=== PATIENT | female | born 2000 | race Caucasian/White ===

== ENCOUNTER 2020-08-22 02:08 | Emergency (ER) | payer OTHER, SELFPAY ==
--- NOTE | 2020-08-22 02:11 | DI.RAD.S_ITS ---
PROCEDURE: XR SHOULDER LT MIN 2V INDICATIONS: fall with shoulder pain, known bone tumor TECHNIQUE: 3 views of the shoulder were acquired. COMPARISON: SNO Outside Film, CR, XR SHOULDER 2+ VIEWS LEFT, 01/20/2020, 12:51. SNO Outside Film, MR, MR SHOULDER LEFT WITHOUT CONTRAST, 02/21/2020, 15:48. FINDINGS: No adequate external rotated view was acquired. Bones: No fractures or dislocations. No suspicious bony lesions. No definite plain film correlate is seen for the humeral neck lesion seen on the outside MRI. Visualized ribs appear intact. Soft tissues: No suspicious soft tissue calcifications. IMPRESSION: Shoulder plain film study within normal limits. Note: No significant discrepancy from the preliminary report. Dictated by: Willian Manning M.D. on 08/22/2020 at 12:42 Approved by: Willian Manning M.D. on 08/22/2020 at 12:45
--- NOTE | 2020-08-22 02:15 | ED.UPPEXIN ---
HPI - Extremity Injury (Upper) General Chief Complaint: Extremity Injury, Upper Stated Complaint: fall/left shoulder injury/pain Time Seen by Provider: 08/22/20 02:11 Source: patient Mode of arrival: Ambulatory Limitations: no limitations History of Present Illness HPI narrative: 20-year-old female nonsmoker presents with the chief complaint of severe left shoulder pain after a fall. She states that she had a few drinks tonight and tripped and fell onto her left shoulder and now has severe pain. She states the pain is worse with motion and improves with rest. She denies any radiation down her arm. She denies any head neck or back pain. 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 complaint: injury to: left Onset (ago): minute(s) Other Extremity Injury: Left: shoulder Other injuries: none Handedness: right Place: other Severity: severe Relieving factors: rest Exacerbating factors: movement of extremity Context: fall and direct blow Associated symptoms: denies other symptoms Treatments prior to arrival: NSAIDS Related Data Allergies Allergy/AdvReac Type Severity Reaction Status Date / Time No Known Drug Allergies Allergy Verified 08/22/20 03:27 Review of Systems Constitutional Constitutional: Denies chills, Denies fatigue, Denies fever(s), Denies frequent falls, Denies lethargy and Denies weakness Eyes Eyes: Denies change in vision, Denies eye discharge, Denies irritation and Denies loss of vision ENT Ears, Nose, Mouth, and Throat: Denies change in voice, Denies dizziness, Denies neck pain, Denies sore throat and Denies throat swelling Cardiovascular Cardiovascular: Denies chest pain, Denies irregular heart rhythm, Denies lightheadedness, Denies palpitations, Denies dyspnea, Denies dyspnea on exertion and Denies orthopnea Respiratory Respiratory: Denies cough, Denies dyspnea, Denies dyspnea on exertion and Denies wheezing Gastrointestinal Gastrointestinal: Denies abdominal pain, Denies change in bowel habits, Denies diarrhea, Denies nausea and Denies vomiting Musculoskeletal Musculoskeletal: Reports arthralgias, Reports limited range of motion, Denies neck pain and Denies numbness Integumentary/Breasts Skin/Breast: Denies pruritus, Denies erythema, Denies rash and Denies wounds Neurologic Neurologic: Denies behavioral changes, Denies confusion, Denies dizziness, Denies frequent falls, Denies loss of vision, Denies numbness and Denies weakness Psychiatric Psychiatric: Denies anxiety, Denies behavioral changes, Denies confusion, Denies depression, Denies homicidal ideation and Denies suicidal ideation Endocrine Endocrine: Denies fatigue, Denies flushing and Denies palpitations Hematologic/Lymphatic Hematologic/Lymphatic: Denies easy bruising Allergic/Immunologic Allergic/Immunologic: Denies urticaria, Denies throat swelling and Denies wheezing Patient History Social History Smoking Status: Never smoker Smoking Status: Never smoker alcohol intake frequency: 0-2 drinks per day Substance Use Type: does not use Exam Narrative Exam Narrative: GEN: AOx3 and in mild distress EYES: Pupils are equal, round, and reactive to light and accommodation. Extraoccular muscles are intact bilaterally. There is no subconjunctival hemorrhage or exudate. CHEST: Lungs are clear to auscultation bilaterally and free of wheezes, rales, or rhonchi. Heart rate is regular rhythm, there are no murmurs, clicks, rubs, or gallops. There is no chest wall tenderness. ABD: Abdomen is soft and nontender. There is no guarding or rebound. Bowel sounds are normal in all 4 quadrants. There is no mass or organomegaly. EXT: Left shoulder with Decreased range of motion secondary to pain, closed, isolated and neurovascularly intact. SKIN: Warm, pink, and dry. No erythema or rash Initial Vital Signs Initial Vital Signs: Vital Signs Temperature 97.5 F L 08/22/20 02:16 Pulse Rate 80 08/22/20 02:16 Respiratory Rate 18 08/22/20 02:16 Blood Pressure 129/86 08/22/20 02:16 Pulse Oximetry 100 08/22/20 02:16 Procedures Orthopedic Splinting/Casting Injury #1: Side: left Upper Extremity Injury Location: shoulder Upper Extremity Immobilizer: sling/shoulder immobilizer Post splinting neuro exam: intact Post splinting vascular exam: intact Placed by: Nursing Course Orders Ordered: ED Orders 08/22/20 02:11 XR shoulder LT min 2V Stat Discontinued Medications Hydrocodone Bitart/Acetaminophen (Hydrocodone/Acet 5/325 Prepack) 1 bottle MISC SEEINSTR ONE Stop: 08/22/20 03:25 Last Admin: 08/22/20 03:31 Dose: 1 bottle Documented by: TRACY Vital Signs Vital signs: Vital Signs - 8 hr 08/22/20 02:16 08/22/20 03:46 Temperature 97.5 F L Pulse Rate 80 76 Respiratory Rate 18 18 Blood Pressure 129/86 115/70 Pulse Oximetry 100 99 MDM - Extremity Injury (Upper) Imaging Data Extremity x-ray #1: My Impression: No fracture or dislocation MDM Narrative Medical decision making narrative: Patient with pain but full range of motion of left shoulder no obvious deformity. X-ray is unremarkable. Sling provided which provides relief. Patient has follow-up secured with her orthopedic group already later in the week. Questions answered to her apparent satisfaction, return precautions given Discharge Plan Departure Patient Disposition: Home Clinical Impression: Contusion of left shoulder Qualifiers: Encounter type: initial encounter Qualified Code(s): S40.012A - Contusion of left shoulder, initial encounter Instructions: DI for Shoulder Pain Activity Restrictions/Additional Instructions: *You have been diagnosed with [left shoulder pain, your physical exam and x-rays are very reassuring, no evidence of fracture or dislocation] *What to do: *Please continue to take your regular medications as directed. [ ] New medication prescriptions sent to your pharmacy: [ ] [ ] New medication written as a paper prescription [ ] No new medications given *Please follow up with your primary care provider in 2-3 days, call for an appointment. Let them know you were seen in the Emergency Department and that we ask that you be seen in follow up. We will electronically transmit a record of today's note if your PCP is in our system *If you do not have a primary care provider please contact the [facility] Resource line at [phone]. They will ask some questions about your medical history and help get you set up with a doctor in the community. *Return to Emergency Department if you should have any new, worsening or concerning symptoms, such as [fever greater than 101 F, shaking chills, worsening pain, persistent vomiting or other bothersome symptoms]
[2020-08-22 02:16] VITALS: BP 129/86; PULSE 80; RESP 18; TEMP 36.4; O2SAT 100; BMI 22.4
[2020-08-22] MEDS: HYDROCODONE/ACET 5/325 PREPACK 1 BOTTLE MISC (03:31)
[2020-08-22 03:46] VITALS: BP 115/70; PULSE 76; RESP 18; O2SAT 99
== END 2020-08-22 04:06 | disposition home or self-care (01) ==
PROVIDERS: Emergency Provider Emergency Medicine
DX: S40.012A Contusion of left shoulder, initial encounter (principal); W19.XXXA Unspecified fall, initial encounter
CPT/HCPCS: 73030; 99283; 99284

== ENCOUNTER 2025-03-05 12:26 | Emergency (ER) | payer OTHER, SELFPAY ==
[2025-03-05] VITALS (8 sets, daily range): BP systolic 105–122; BP diastolic 59–76; PULSE 79–102; RESP 17–27; TEMP 37.3; O2SAT 97–99; BMI 23.6
--- NOTE | 2025-03-05 12:53 | EKG_ITS ---
[address] [address] Test Date: 2025-03-05 Pat Name: Kira Coombs Department: [facility] Room: Gender: Female Transaction Coordinator: : 2000 Requested By: Order Number: [id number] Reading MD: Laurent Momin Measurements Intervals [place] Rate: 83 P: 53 CA: 150 QRS: 63 QRSD: 98 T: 8 QT: 376 QTc: 441 Interpretive Statements Normal sinus rhythm Incomplete right bundle branch block Electronically Signed On 03-08-2025 12:54:50 PST by Laurent Momin
--- NOTE | 2025-03-05 12:54 | DI.RAD.S_ITS ---
PROCEDURE: XR CHEST 2V INDICATIONS: dry cough TECHNIQUE: 2 views of the chest were acquired. COMPARISON: None. FINDINGS: Surgical changes and devices: None. Lungs and pleura: Significant, poorly defined left perihilar infiltrate can be seen. The right lung appears clear. No pneumothorax or pleural effusions are seen. Mediastinum: Mediastinal contours are normal. Heart size is normal. Bones and chest wall: No suspicious bony abnormalities. Soft tissues appear unremarkable. IMPRESSION: Significant, poorly defined left perihilar infiltrate is seen. Dictated by: Willian Manning M.D. on 03/05/2025 at 12:21 Approved by: Willian Manning M.D. on 03/05/2025 at 12:22
[2025-03-05 14:02] LABS: Add Manual Diff / Slide Review NO; Hematocrit 36.6 % (36-46); Hemoglobin 12.4 g/dL (12.0-16.0); Lymphocytes Absolute Auto 1200 /uL (1100-4500); Mean Corpuscular HGB Conc 34.0 % (30-36); Mean Corpuscular Hemoglobin 30.7 PG (26-34); Mean Corpuscular Volume 90.5 fL (80-100); Platelet Count 308 X10^3/uL (150-400)
[2025-03-05 14:09] LABS: INR 1.3 (0.9-1.3); Prothrombin Time 14.3 SECONDS (9.4-12.5)
[2025-03-05 14:11] LABS: Influenza A - CEPHEID Flu A NEGATIVE (NEGATIVE); Influenza B - CEPHEID Flu B NEGATIVE (NEGATIVE)
[2025-03-05 14:12] LABS: PTT Partial Thromboplastin Tim 30 SECONDS (25.1-36.5)
[2025-03-05 14:12] LABS: COVID-19 CEPHEID 4-PLEX PCR Negative (Negative)
[2025-03-05] MEDS: SODIUM CHLORIDE 0.9% 1,000 ML 1000 ML IV (14:13)
[2025-03-05 14:14] LABS: Culture Indicated Urine Specimen Cultured
[2025-03-05 14:15] LABS: Alanine Aminotransferase 25 IU/L (<35); Albumin 4.3 g/dL (3.5-5.0); Albumin Globulin Ratio 1.4 (1.0-2.8); Alkaline Phosphatase 59 U/L (38-126); Blood Urea Nitrogen 12 mg/dL (7-17); Calcium 8.7 mg/dL (8.4-10.2); Carbon Dioxide 26 mmol/L (22-32); Chloride 102 mmol/L (98-107); Creatine Kinase 87 U/L (30-135); Estimated Glomerular Filt Rate > 60 mL/min (>60); Globulin 3.1 g/dL (1.7-4.1); Glucose 100 mg/dL (70-99); HEMOLYSIS < 15 (0-50); Lipase 53 U/L (23-300); Magnesium 1.8 mg/dL (1.6-2.3); Potassium 3.3 mmol/L (3.4-5.1); Sodium 136 mmol/L (137-145); Total Protein 7.4 g/dL (6.3-8.2)
[2025-03-05] MEDS: KETOROLAC 30 MG/ML VIAL 15 MG IV (14:15)
[2025-03-05 14:27] LABS: NT-proBNP (BNP-Adult 18+) 58 pg/mL (<125); Troponin I < 0.012 ng/mL (0.01-0.034)
--- NOTE | 2025-03-05 14:54 | ED.URI ---
HPI - URI/Sore Throat General Chief Complaint: Upper Respiratory Symptoms Stated Complaint: Chest px/fever/cough x 1 week Time Seen by Provider: 03/05/25 12:38 Source: patient Mode of arrival: Family Vehicle History of Present Illness HPI Narrative: Ms. Coombs is a very pleasant 24-year-old female with no reported past medical history who presents to the emergency department with her mother for chest pain, shortness breath, fever, cough x1 week. Patient states her symptoms started about 1 week ago, she does work around multiple sick people. She does not have asthma, smoke cigarettes or any other lung problems. She was started on amoxicillin clavulanic acid about 3 days ago but she has continued to have symptoms. She describes chest pain as a tightness predominantly on the right side. No vomiting or diarrhea. Benzonatate has not helped with her cough. No lower leg swelling or calf tenderness, no hormone use. Related Data Previous Rx's ?Medication ?Instructions ?Recorded doxycycline hyclate 100 mg capsule 100 mg PO BID 5 days #10 caps 03/05/25 Allergies Allergy/AdvReac Type Severity Reaction Status Date / Time No Known Drug Allergies Allergy Verified 03/05/25 12:46 Review of Systems Review of Systems ROS Unobtainable: All systems reviewed & are unremarkable except as noted in HPI and below Patient History Social History Smoking Status: Never smoker Smoking Status: Never smoker alcohol intake frequency: 0-2 drinks per day Exam Narrative Exam Narrative: GENERAL: 24 year old patient appears stated age. Well-developed patient, in no acute distress. HEAD: Atraumatic. Normocephalic. EYES: PERRL. Extraocular motions intact. No scleral icterus. No injection or drainage. ENT: Nose without bleeding, purulent drainage. Throat without erythema, tonsillar hypertrophy or exudate. Airway patent. NECK: Trachea midline. Cervical ROM intact. CARDIOVASCULAR: Regular rate and rhythm. RESPIRATORY: ?Nonlabored respirations. ?Speaking in clear, full sentences. Subtle bilateral coarse inspiratory breath sounds, there is no wheezing throughout. GASTROINTESTINAL: Abdomen soft, non-tender, nondistended. EXTREMITIES: No edema or joint tenderness. BACK: Nontender without deformity or crepitance. No flank tenderness. NEURO: AOx3. ?Clear speech. ?Moves all 4 extremities appropriately. SKIN: No rash or erythema of visible areas Initial Vital Signs Initial Vital Signs: Vital Signs Temperature 99.2 F 03/05/25 12:48 Pulse Rate 102 H 03/05/25 12:48 Respiratory Rate 18 03/05/25 12:48 Blood Pressure 122/76 03/05/25 12:48 Pulse Oximetry 99 03/05/25 12:48 Oxygen Delivery Method Room Air 03/05/25 12:48 Scores HEART Score Heart Score history: Slightly Suspicious Heart Score EKG: Normal Heart Score Age: < 45 years old Heart Score risk factors: No known risk factors Heart Score troponin: < or = to normal limit Heart Score Total: 0 PERC Score Age greater than or equal to 50 years: No Heart rate greater than or equal to 100 bpm: No Room Air O2 Sat less than 95%: No Unilateral leg swelling: No Recent trauma or surgery: No Hemoptysis: No Prior PE or DVT: No Hormone Use: No Total PERC Score: 0 Course Orders Ordered: ED Orders 03/05/25 12:53 EKG-12 Lead Stat 03/05/25 12:54 CXR [XR chest 2V] Stat 03/05/25 12:57 Covid-19 + FLU A/B + RSV - PCR Stat 03/05/25 13:55 Complete Blood Count AUTO DIFF Stat Comprehensive Metabolic Panel Stat Lipase Stat Magnesium Stat NT-proBNP (BNP-Adult 18+) Stat PTT Partial Thromboplastin David Stat Test Urine Stat Prothrombin Time INR Stat Troponin & CK Cardiac Panel Stat Urine Culture Stat Urine Microscopic Stat Discontinued Medications Doxycycline Hyclate (Doxycycline Hyclate 100 Mg Tablet) 100 mg PO NOW ONE Stop: 03/05/25 15:50 Last Admin: 03/05/25 15:54 Dose: 100 mg Documented By: PRINCESS Sodium Chloride (Normal Saline 0.9%) 1,000 mls @ 1,000 mls/hr IV BOLUS ONE Stop: 03/05/25 13:54 Last Infusion: 03/05/25 14:59 Dose: Infused Documented By: Admin: 03/05/25 14:13 Dose: 1,000 mls/hr Documented By: PRINCESS Ketorolac Tromethamine (Ketorolac 30 Mg/Ml Vial) 15 mg IV NOW ONE Stop: 03/05/25 12:56 Last Admin: 03/05/25 14:15 Dose: 15 mg Documented By: [facility] Vital Signs Vital signs: Vital Signs - 8 hr 03/05/25 12:48 03/05/25 13:54 03/05/25 13:55 Temperature 99.2 F Pulse Rate 102 H 90 91 H Respiratory Rate 18 17 22 Blood Pressure 122/76 Pulse Oximetry 99 99 Oxygen Delivery Method Room Air 03/05/25 13:55 03/05/25 14:00 03/05/25 14:00 Temperature Pulse Rate 93 H Respiratory Rate 22 Blood Pressure 115/60 113/63 Pulse Oximetry 99 Oxygen Delivery Method Room Air 03/05/25 14:30 03/05/25 14:30 03/05/25 15:00 Temperature Pulse Rate 82 87 Respiratory Rate 27 H 25 H Blood Pressure 107/59 L Pulse Oximetry 97 97 Oxygen Delivery Method Room Air 03/05/25 15:00 03/05/25 15:30 03/05/25 15:30 Temperature Pulse Rate 81 Respiratory Rate 23 Blood Pressure 110/59 L 110/67 Pulse Oximetry 98 Oxygen Delivery Method 03/05/25 16:00 03/05/25 16:00 Temperature Pulse Rate 79 Respiratory Rate 22 Blood Pressure 105/65 Pulse Oximetry 97 Oxygen Delivery Method MDM - URI/Sore Throat Medical Records Attestation: I reviewed the patient's medical records. Lab Data 03/05/25 13:55 03/05/25 13:55 Labs: Lab Results 03/05/25 03/05/25 Range/Units 12:57 13:55 WBC 9.9 (4.5-11.0) X10^3/uL RBC 4.05 (4.0-5.2) X10^6/uL Hgb 12.4 (12.0-16.0) g/dL Hct 36.6 (36-46) % MCV 90.5 (80-100) fL MCH 30.7 (26-34) PG MCHC 34.0 (30-36) % RDW 12.9 (11.6-14.8) % Plt Count 308 (150-400) X10^3/uL Neut % (Auto) 73.0 (50-75) % Lymph % (Auto) 11.9 L (25-40) % [place] % (Auto) 13.6 (3-14) % Eos % (Auto) 1.2 L (2-4) % Baso % (Auto) 0.3 (0-2) % Neut # (Auto) 7200 H (5746-4789) /uL Lymph # (Auto) 1200 (4173-2088) /uL Baxter # (Auto) 1300 H (0-900) /uL Eos # (Auto) 100 (0-450) /uL Baso # (Auto) 0 (0-100) /uL PT 14.3 H (9.4-12.5) SECONDS INR 1.3 (0.9-1.3) APTT 30 (25.1-36.5) SECONDS Sodium 136 L (137-145) mmol/L Potassium 3.3 L (3.4-5.1) mmol/L Chloride 102 (98-107) mmol/L Carbon Dioxide 26 (22-32) mmol/L BUN 12 (7-17) mg/dL Creatinine 0.66 (0.52-1.04) mg/dL Estimated GFR > 60 (>60) mL/min BUN/Creatinine Ratio 18.2 (6-22) Glucose 100 H (70-99) mg/dL Calcium 8.7 (8.4-10.2) mg/dL Magnesium 1.8 (1.6-2.3) mg/dL Total Bilirubin 0.3 (0.2-1.3) mg/dL AST 30 (14-36) IU/L ALT 25 (<35) IU/L Alkaline Phosphatase 59 (38-126) U/L Total Creatine Kinase 87 (30-135) U/L Troponin I < 0.012 (0.01-0.034) ng/mL NT-Pro-B Natriuret Pep 58 (<125) pg/mL Total Protein 7.4 (6.3-8.2) g/dL Albumin 4.3 (3.5-5.0) g/dL Globulin 3.1 (1.7-4.1) g/dL Albumin/Globulin Ratio 1.4 (1.0-2.8) Lipase 53 (23-300) U/L Urine RBC None seen (0-5/HPF) Urine WBC 1-5/hpf (0-5/HPF) Ur Squamous Epith Cells 5-10 /hpf H (0-5/HPF) Urine Bacteria None seen (None) Ur Culture Indicated? Specimen cultured Vol Urine Centrifuged 10ml (spun) Urine Test Negative (Negative) SARS-CoV-2 (PCR) Negative (Negative) Influenza A (RT-PCR) Flu a negative (NEGATIVE) Influenza B (RT-PCR) Flu b negative (NEGATIVE) RSV (PCR) Negative (Negative) Urine Dip Bedside Urine Glucose Negative Bedside Urine Bilirubin - Negative Bedside Urine Ketone - Negative Urine Specific [place] 1.015 Bedside Urine Occult Blood - Negative Bedside Urine pH 6.5 Bedside Urine Protein +/- 15 Bedside Urine Urobilinogen - Negative Bedside Urine Nitrite - Negative Bedside Urine Leukocytes +/- 15 Esterase Imaging Data Chest x-ray: Radiologist's Impression: PROCEDURE: XR CHEST 2V INDICATIONS: dry cough TECHNIQUE: 2 views of the chest were acquired. COMPARISON: None. FINDINGS: Surgical changes and devices: None. Lungs and pleura: Significant, poorly defined left perihilar infiltrate can be seen. The right lung appears clear. No pneumothorax or pleural effusions are seen. Mediastinum: Mediastinal contours are normal. Heart size is normal. Bones and chest wall: No suspicious bony abnormalities. Soft tissues appear unremarkable. IMPRESSION: Significant, poorly defined left perihilar infiltrate is seen. Dictated by: Willian Manning M.D. on 03/05/2025 at 12:21 Approved by: Willian Manning M.D. on 03/05/2025 at 12:22 ECG Data Interpretation: ECG reveals normal sinus rhythm with a rate of 83 beats per minute, QTC of 441, no priors for comparison. MDM Narrative Medical decision making narrative: 24-year-old female with no reported past medical history who presents to the emergency department with her mother for chest pain, shortness breath, fever, cough x1 week. Differential diagnosis includes but isn't limited to pneumonia, costochondritis, bronchitis, myocarditis, PE, etc. On exam the patient is in no acute distress, nontoxic appearing, vital signs appropriate. She is afebrile. She is having persistent cough resulting in chest pain for the last week despite being on antibiotics for about 3 days. She has some coarse inspiratory breath sounds but no wheezing. No history of lung disease, she does not smoke. We will obtain cardiac workup including two-view chest x-ray and treat with IV fluids and ketorolac. PERC negative. Chest x-ray reveals a significant perihilar defined left perihilar infiltrate. Labs reveal normal WBC count 9.9, neutrophils slightly elevated 7200. Sodium slightly decreased 136, potassium 3.3, BUN 12 creatinine 0.66. Glucose 100. Troponin undetectable. BNP negative. LFTs normal. Lipase normal 53. Urinalysis with some contamination. Discussed case with the attending ED physician. Overall patient's history physical exam and workup today is consistent with pneumonia. She has been on Augmentin for 3 days we will add on doxycycline b.i.d.. Encourage rest, hydration, increase dietary potassium, prompt follow up with the PCP and strict ER return precautions. Reviewed signs and symptoms return to the emergency department for with the patient and her mom, she verbalized understanding of all information is agreeable with the plan, 1st dose of antibiotics given in the ED, she is stable for discharge home. Discharge Plan Departure Patient Disposition: Home Clinical Impression: Pneumonia Qualifiers: Pneumonia type: due to unspecified organism Laterality: left Lung location: unspecified part of lung Qualified Code(s): J18.9 - Pneumonia, unspecified organism Instructions: DI for Pneumonia -- Adult Activity Restrictions/Additional Instructions: Dear Ms. Coombs, Thank you for coming to the emergency department. Today you were evaluated and diagnosed with pneumonia of the left long. I would like you to complete the full course of previously prescribed amoxicillin-clavulanic acid but also start taking doxycycline. As discussed, do not take this medication prior to lying flat. It is helpful that eat something before taking these medications. Please rest, hydrate, use ibuprofen and or Tylenol if needed for pain or fevers, increase hydration, and use honey to help with cough. Please return to the emergency department if you develop any new or worsening symptoms, increased pain, difficulty breathing or any other concerns. Please follow up with your primary care doctor within the next 2-3 days for ER follow-up. (If you do not have a PCP you can call [phone]. ?to schedule an appointment with an [facility] Primary Care Provider) IF YOU DEVELOP ANY NEW OR WORSENING SYMPTOMS, RETURN TO THE ER! Please read the attached instructions, they highlight more specific treatments and interventions for you at home. Thank you for letting me participate in your care, Linda Starkey PA-C Prescriptions: New doxycycline hyclate 100 mg capsule 100 mg PO BID 5 Days Qty: 10 0RF Referrals: Annmarie Crespo MD [Primary Care Provider, Medical] Stand Alone Forms: Patient Portal/API, Work Release Note
[2025-03-05] MEDS: DOXYCYCLINE HYCLATE 100 MG TABLET PO (15:54)
== END 2025-03-05 16:14 | disposition home or self-care (01) ==
PROVIDERS: Emergency Provider Physician Assistant; PCP Family Medicine
DX: J18.9 Pneumonia, unspecified organism (principal); R07.9 Chest pain, unspecified
CPT/HCPCS: 36415; 71046; 80053; 81003; 81015; 81025; 82550; 83690; 83735; 83880; 84484; 85025; 85610; 85730; 87086; 87637; 93005; 96374; 99284; J1885; J7030

== ENCOUNTER 2025-03-22 12:59 | Emergency (ER) | payer OTHER, SELFPAY ==
[2025-03-22 13:07] VITALS: BP 118/72; PULSE 84; RESP 20; TEMP 36.6; O2SAT 100; BMI 23.6
--- NOTE | 2025-03-22 13:18 | ED_ITS ---
HPI - SOB/Dyspnea <Linda Starkey PA-C - Last Filed: 03/22/25 18:14> General Chief Complaint: Shortness of Breath/Dyspnea Stated Complaint: cough, chest px since yesterday Time Seen by Provider: 03/22/25 13:04 Source: patient Mode of arrival: Ambulatory Limitations: no limitations History of Present Illness HPI Narrative: Ms. Coombs is a pleasant 24-year-old female with a reported past medical history of POTS, recent treatment for pneumonia 03/05/2025, currently on cefdinir for right ear infection x 5 days who presents to the emergency department for cough, chest pain x 7 days. Patient states that after being treated with doxycycline for left lower lobe pneumonia earlier this month she was feeling better however her cough never went away. On Monday she started having chest pain worse with coughing and her cough increased. On Monday she was evaluated for right ear pain and started on cefdinir for acute otitis media. She continues to have worsening cough and worsening bilateral chest pain with coughing which she describes stabbing, 10. Pain is exacerbated by coughing movement and deep breathing and does not improve with Tylenol. She denies hormone use, prior VTE, lower extremity swelling or pain. No abdominal pain, nausea, vomiting, diarrhea, constipation, fevers, chills, dysuria. She does not smoke. She is noticing that she is wheezing. Related Data Previous Rx's ?Medication ?Instructions ?Recorded albuterol sulfate 90 mcg/actuation 2 puff inhalation Q 4-6H PRN 03/22/25 aerosol inhaler shortness of breath or wheez ing #6.7 grams azithromycin 250 mg tablet See Rx Instructions PO .COM PLEX #6 03/22/25 tabs prednisone 20 mg tablet 40 mg (2 x 20 mg) PO DAILY 5 days 03/22/25 #10 tabs Allergies Allergy/AdvReac Type Severity Reaction Status Date / Time No Known Drug Allergies Allergy Verified 03/22/25 13:10 Review of Systems <MARILOU Doll Last Filed: 03/22/25 18:14> Review of Systems ROS Unobtainable: All systems reviewed & are unremarkable except as noted in HPI and below Patient History <MARILOU Doll Last Filed: 03/22/25 18:14> alcohol intake frequency: 0-2 drinks per day Exam <Linda Starkey PA-C - Last Filed: 03/22/25 18:14> Narrative Exam Narrative: GENERAL: 24 year old patient appears stated age. Well-developed patient, in no acute distress. HEAD: Atraumatic. Normocephalic. EYES: No scleral icterus. No injection or drainage. ENT: Right ear canal clear, slight erythema of TM. Left ear canal clear with pearly aquino TM. Nose without bleeding, purulent drainage. Uvula midline. Airway patent. NECK: Trachea midline. Cervical ROM intact. CARDIOVASCULAR: Regular rate and rhythm. RESPIRATORY: ?Nonlabored respirations. ?Speaking in clear, full sentences. ?Patient has very faint coarse inspiratory crackles and left lower lobe and expiratory wheeze. She also has expiratory wheeze in right lower lobe. GASTROINTESTINAL: Abdomen soft, non-tender, nondistended. EXTREMITIES: No LE edema. NEURO: AOx3. ?Clear speech. ?Moves all 4 extremities appropriately. SKIN: No rash or erythema of visible areas Initial Vital Signs Initial Vital Signs: Vital Signs Temperature 97.8 F 03/22/25 13:07 Pulse Rate 84 03/22/25 13:07 Respiratory Rate 20 03/22/25 13:07 Blood Pressure 118/72 03/22/25 13:07 Pulse Oximetry 100 03/22/25 13:07 Oxygen Delivery Method Room Air 03/22/25 13:07 <Irene Cosby MD - Last Filed: 03/24/25 00:57> Initial Vital Signs Initial Vital Signs: Vital Signs Temperature 97.8 F 03/22/25 13:07 Pulse Rate 84 03/22/25 13:07 Respiratory Rate 20 03/22/25 13:07 Blood Pressure 118/72 03/22/25 13:07 Pulse Oximetry 100 03/22/25 13:07 Oxygen Delivery Method Room Air 03/22/25 13:07 Scores <Linda Starkey PA-C - Last Filed: 03/22/25 18:14> PERC Score Age greater than or equal to 50 years: No Heart rate greater than or equal to 100 bpm: No Room Air O2 Sat less than 95%: No Unilateral leg swelling: No Recent trauma or surgery: No Hemoptysis: No Prior PE or DVT: No Hormone Use: No Total PERC Score: 0 <Irene Cosby MD - Last Filed: 03/24/25 00:57> PERC Score Total PERC Score: 0 Course <Linda Starkey PA-C - Last Filed: 03/22/25 18:14> Orders Ordered: Discontinued Medications Albuterol/Ipratropium (Albuterol/Ipratropium 3 Ml Ampul) 3 ml INH NOW ONE Stop: 03/22/25 13:16 Last Admin: 03/22/25 13:33 Dose: 3 ml Documented By: TIMBO Sodium Chloride (Normal Saline 0.9%) 1,000 mls @ 1,000 mls/hr IV BOLUS ONE Stop: 03/22/25 14:14 Last Infusion: 03/22/25 14:49 Dose: Infused Documented By: Admin: 03/22/25 13:52 Dose: 1,000 mls/hr Documented By: PRINCESS Ketorolac Tromethamine (Ketorolac 30 Mg/Ml Vial) 15 mg IV NOW ONE Stop: 03/22/25 13:16 Last Admin: 03/22/25 13:41 Dose: 15 mg Documented By: PRINCESS Prednisone (Prednisone 20 Mg Tablet) 40 mg PO NOW ONE Stop: 03/22/25 13:16 Last Admin: 03/22/25 13:40 Dose: 40 mg Documented By: PRINCESS Vital Signs Vital signs: Vital Signs - 8 hr 03/22/25 13:07 03/22/25 13:33 03/22/25 14:50 Temperature 97.8 F Pulse Rate 84 78 72 Respiratory Rate 20 18 24 Blood Pressure 118/72 95/51 L Pulse Oximetry 100 99 99 Oxygen Delivery Method Room Air Room Air Room Air 03/22/25 15:11 Temperature Pulse Rate 74 Respiratory Rate 24 Blood Pressure 108/58 L Pulse Oximetry 100 Oxygen Delivery Method Room Air <Irene Cosby MD - Last Filed: 03/24/25 00:57> Orders Ordered: Discontinued Medications Albuterol/Ipratropium (Albuterol/Ipratropium 3 Ml Ampul) 3 ml INH NOW ONE Stop: 03/22/25 13:16 Last Admin: 03/22/25 13:33 Dose: 3 ml Documented By: TIMBO Sodium Chloride (Normal Saline 0.9%) 1,000 mls @ 1,000 mls/hr IV BOLUS ONE Stop: 03/22/25 14:14 Last Infusion: 03/22/25 14:49 Dose: Infused Documented By: Admin: 03/22/25 13:52 Dose: 1,000 mls/hr Documented By: PRINCESS Ketorolac Tromethamine (Ketorolac 30 Mg/Ml Vial) 15 mg IV NOW ONE Stop: 03/22/25 13:16 Last Admin: 03/22/25 13:41 Dose: 15 mg Documented By: PRINCESS Prednisone (Prednisone 20 Mg Tablet) 40 mg PO NOW ONE Stop: 03/22/25 13:16 Last Admin: 03/22/25 13:40 Dose: 40 mg Documented By: PRINCESS Vital Signs Vital signs: Vital Signs - 8 hr 03/22/25 13:07 03/22/25 13:33 03/22/25 14:50 Temperature 97.8 F Pulse Rate 84 78 72 Respiratory Rate 20 18 24 Blood Pressure 118/72 95/51 L Pulse Oximetry 100 99 99 Oxygen Delivery Method Room Air Room Air Room Air 03/22/25 15:11 Temperature Pulse Rate 74 Respiratory Rate 24 Blood Pressure 108/58 L Pulse Oximetry 100 Oxygen Delivery Method Room Air MDM - SOB/Dyspnea <Linda Starkey PA-C - Last Filed: 03/22/25 18:14> Medical Records Attestation: I reviewed the patient's medical records. Lab Data 03/22/25 13:30 03/22/25 13:30 Labs: Lab Results 03/22/25 Range/Units 13:30 WBC 6.6 (4.5-11.0) X10^3/uL RBC 4.22 (4.0-5.2) X10^6/uL Hgb 12.7 (12.0-16.0) g/dL Hct 37.3 (36-46) % MCV 88.6 (80-100) fL MCH 30.0 (26-34) PG MCHC 33.9 (30-36) % RDW 13.1 (11.6-14.8) % Plt Count 445 H (150-400) X10^3/uL Neut % (Auto) 49.7 L (50-75) % Lymph % (Auto) 32.8 (25-40) % Summers % (Auto) 11.0 (3-14) % Eos % (Auto) 6.1 H (2-4) % Baso % (Auto) 0.4 (0-2) % Neut # (Auto) 3300 (5683-2214) /uL Lymph # (Auto) 2200 (2973-5548) /uL Summers # (Auto) 700 (0-900) /uL Eos # (Auto) 400 (0-450) /uL Baso # (Auto) 0 (0-100) /uL Sodium 140 (137-145) mmol/L Potassium 4.0 (3.4-5.1) mmol/L Chloride 107 (98-107) mmol/L Carbon Dioxide 22 (22-32) mmol/L BUN 16 (7-17) mg/dL Creatinine 0.74 (0.52-1.04) mg/dL Estimated GFR > 60 (>60) mL/min BUN/Creatinine Ratio 21.6 (6-22) Glucose 100 H (70-99) mg/dL Calcium 9.3 (8.4-10.2) mg/dL Total Bilirubin 0.6 (0.2-1.3) mg/dL AST 52 H (14-36) IU/L ALT 28 (<35) IU/L Alkaline Phosphatase 63 (38-126) U/L Total Protein 7.7 (6.3-8.2) g/dL Albumin 4.7 (3.5-5.0) g/dL Globulin 3.0 (1.7-4.1) g/dL Albumin/Globulin Ratio 1.6 (1.0-2.8) SARS-CoV-2 (PCR) Negative (Negative) Influenza A (RT-PCR) Flu a negative (NEGATIVE) Influenza B (RT-PCR) Flu b negative (NEGATIVE) RSV (PCR) Negative (Negative) Imaging Data Chest x-ray: Radiologist's Impression: PROCEDURE: XR CHEST 2V INDICATIONS: SOB, wheezing, cough; CP; concern PNA TECHNIQUE: 2 views of the chest were acquired. COMPARISON: [facility], , XR CHEST 2V, 03/05/2025, 12:59. FINDINGS: Surgical changes and devices: None. Lungs and pleura: Lungs are clear. No pleural effusions or pneumothorax. Mediastinum: Mediastinal contours are normal. Heart size is normal. Bones and chest wall: No suspicious bony abnormalities. Soft tissues appear unremarkable. IMPRESSION: No acute cardiopulmonary pathology. Dictated by: Juventino Akers M.D. on 03/22/2025 at 14:16 Approved by: Juventino Akers M.D. on 03/22/2025 at 14:16 [facility] Narrative Medical decision making narrative: 24-year-old female with a reported past medical history of POTS, recent treatment for pneumonia 03/05/2025, currently on cefdinir for right ear infection x 5 days who presents to the emergency department for cough, chest pain x 7 days. Differential diagnosis includes but is not limited to pneumonia, bronchitis, reactive airway disease, pleurisy, pneumonia, viral syndrome, etc. On exam the patient is in no acute distress, nontoxic-appearing, all vital signs within normal limits. She does have what appears to be healing AOM in right ear currently on cefdinir. Her lung sounds do reveal expiratory wheezing and some faint crackles in the left lower lobe. No history of asthma. We will treat with DuoNeb, prednisone, IV fluids, Toradol and obtain CBC CMP chest x-ray EKG. Patient is having coughing, chest pain with coughing, with auscultated abnormal breath sounds. She is healthy 24-year-old no history of CAD or other heart disease, I do not believe that this is ACS therefore troponin has not been ordered at this time. EKG reveals normal sinus rhythm with a ventricular rate of 65 beats per minute, QTC of [address] segment elevation or depression. Chest x-ray reveals no acute cardiopulmonary pathology. Labs reveal normal WBC count 6.6, hemoglobin 12.7 hematocrit 37.3. Platelets slightly elevated 445. Sodium 140, potassium 4.0, BUN 16 creatinine 0.74. Glucose 100. Slight elevation AST 52. Viral swab negative. On repeat evaluation of patient, her lung sounds have improved she has very faint expiratory wheezing in bilateral lower lobes. Discussed with the patient that I would like her to continue on steroids and using an albuterol inhaler for the wheezing. We discussed that this could be a possible atypical pneumonia developing or it may simply be viral. We decided that she will continue her cefdinir and start the steroid and the inhaler but if she does not have improvement she was sent a script of azithromycin. Discussed strict ER return precautions and supportive care. Discussed PCP follow up. She verbalized understanding of all information agreeable with the plan. She is stable for discharge home. <Irene Cosby MD - Last Filed: 03/24/25 00:57> Lab Data Labs: Lab Results 03/22/25 Range/Units 13:30 WBC 6.6 (4.5-11.0) X10^3/uL RBC 4.22 (4.0-5.2) X10^6/uL Hgb 12.7 (12.0-16.0) g/dL Hct 37.3 (36-46) % MCV 88.6 (80-100) fL MCH 30.0 (26-34) PG MCHC 33.9 (30-36) % RDW 13.1 (11.6-14.8) % Plt Count 445 H (150-400) X10^3/uL Neut % (Auto) 49.7 L (50-75) % Lymph % (Auto) 32.8 (25-40) % Summers % (Auto) 11.0 (3-14) % Eos % (Auto) 6.1 H (2-4) % Baso % (Auto) 0.4 (0-2) % Neut # (Auto) 3300 (1212-2850) /uL Lymph # (Auto) 2200 (2739-9561) /uL Summers # (Auto) 700 (0-900) /uL Eos # (Auto) 400 (0-450) /uL Baso # (Auto) 0 (0-100) /uL Sodium 140 (137-145) mmol/L Potassium 4.0 (3.4-5.1) mmol/L Chloride 107 (98-107) mmol/L Carbon Dioxide 22 (22-32) mmol/L BUN 16 (7-17) mg/dL Creatinine 0.74 (0.52-1.04) mg/dL Estimated GFR > 60 (>60) mL/min BUN/Creatinine Ratio 21.6 (6-22) Glucose 100 H (70-99) mg/dL Calcium 9.3 (8.4-10.2) mg/dL Total Bilirubin 0.6 (0.2-1.3) mg/dL AST 52 H (14-36) IU/L ALT 28 (<35) IU/L Alkaline Phosphatase 63 (38-126) U/L Total Protein 7.7 (6.3-8.2) g/dL Albumin 4.7 (3.5-5.0) g/dL Globulin 3.0 (1.7-4.1) g/dL Albumin/Globulin Ratio 1.6 (1.0-2.8) SARS-CoV-2 (PCR) Negative (Negative) Influenza A (RT-PCR) Flu a negative (NEGATIVE) Influenza B (RT-PCR) Flu b negative (NEGATIVE) RSV (PCR) Negative (Negative) Discharge Plan Departure Patient Disposition: Home Clinical Impression: Acute bronchitis with wheezing Instructions: DI for Acute Bronchitis Activity Restrictions/Additional Instructions: Dear Ms. Coombs, Thank you for coming to the emergency department. Today you were evaluated for worsening cough and chest pain with a recent diagnosis of pneumonia. Your blood work and chest x-ray were reassuring today and you tested negative for COVID/flu/RSV. However as we discussed you are wheezing. You have been prescribed a steroid and an inhaler to use for this. I want you to continue your current antibiotic of cefdinir. As we discussed, if you are not having improvement with your steroid please start the prescribed azithromycin antibiotic in about 2 days. If you develop any worsening of symptoms however, I would like you to return to the emergency department. Please follow up with your primary care doctor within the next 2-3 days for ER follow-up. (If you do not have a PCP you can call [phone]. ?to schedule an appointment with an [facility] Primary Care Provider) IF YOU DEVELOP ANY NEW OR WORSENING SYMPTOMS, RETURN TO THE ER! Please read the attached instructions, they highlight more specific treatments and interventions for you at home. Thank you for letting me participate in your care, Linda Starkey PA-C Prescriptions: New prednisone 20 mg tablet 40 mg PO DAILY 5 Days Qty: 10 0RF azithromycin 250 mg tablet See Rx Instructions .ROUTE .COMPLEX Qty: 6 0RF Rx Instructions: For 250 mg dose pack: take 500 mg today (day 1), then 250 mg for 4 days (days 2-5) albuterol sulfate 90 mcg/actuation HFA aerosol inhaler 2 puff inhalation Q4-6H PRN (Reason: shortness of breath or wheezing) Qty: 6.7 1RF Referrals: Annmarie Crespo MD [Primary Care Provider, Medical] Stand Alone Forms: Patient Portal/API, Work Release Note ED Sign-out <Irene Cosby MD - Last Filed: 03/24/25 00:57> Cosign ED Attending Marina Attestation: I reviewed the documentation entered by the physician hearing aid assistant. I was not directly involved in this patient?s care, but I reviewed the documented history, examination findings, assessment, and plan with the PA. I agree with the evaluation and plan as documented. Irene Cosby MD Emergency Medicine Attending
--- NOTE | 2025-03-22 13:22 | EKG_ITS ---
[address] [address] Test Date: 2025-03-22 Pat Name: Kira Coombs Department: [facility] Room: Gender: Female Bale Opener: ROMY : 2000 Requested By: Order Number: [id number] Reading MD: Dilip Patton MD Measurements Intervals [place] Rate: 65 P: 36 [place]: 144 QRS: 69 QRSD: 90 T: 13 QT: 422 QTc: 438 Interpretive Statements Normal sinus rhythm with sinus arrhythmia Electronically Signed On 03-23-2025 9:19:26 PST by Dilip Patton MD
[2025-03-22 13:33] VITALS: PULSE 78; RESP 18; O2SAT 99
[2025-03-22] MEDS: ALBUTEROL/IPRATROPIUM 3 ML AMPUL INH (13:33)
[2025-03-22] MEDS: KETOROLAC 30 MG/ML VIAL 15 MG IV (13:41)
[2025-03-22] MEDS: SODIUM CHLORIDE 0.9% 1,000 ML 1000 ML IV (13:52)
[2025-03-22 13:53] LABS: Add Manual Diff / Slide Review NO; Hematocrit 37.3 % (36-46); Hemoglobin 12.7 g/dL (12.0-16.0); Lymphocytes Absolute Auto 2200 /uL (1100-4500); Mean Corpuscular HGB Conc 33.9 % (30-36); Mean Corpuscular Hemoglobin 30.0 PG (26-34); Mean Corpuscular Volume 88.6 fL (80-100); Platelet Count 445 X10^3/uL (150-400)
[2025-03-22 14:10] LABS: Alanine Aminotransferase 28 IU/L (<35); Albumin 4.7 g/dL (3.5-5.0); Albumin Globulin Ratio 1.6 (1.0-2.8); Alkaline Phosphatase 63 U/L (38-126); Blood Urea Nitrogen 16 mg/dL (7-17); Calcium 9.3 mg/dL (8.4-10.2); Carbon Dioxide 22 mmol/L (22-32); Chloride 107 mmol/L (98-107); Estimated Glomerular Filt Rate > 60 mL/min (>60); Globulin 3.0 g/dL (1.7-4.1); Glucose 100 mg/dL (70-99); HEMOLYSIS 17 (0-50); Potassium 4.0 mmol/L (3.4-5.1); Sodium 140 mmol/L (137-145); Total Protein 7.7 g/dL (6.3-8.2)
--- NOTE | 2025-03-22 14:15 | RT ---
pt joy garcia well, on room air with no sob or distress noted
[2025-03-22 14:38] LABS: Influenza A - CEPHEID Flu A NEGATIVE (NEGATIVE); Influenza B - CEPHEID Flu B NEGATIVE (NEGATIVE)
[2025-03-22 14:39] LABS: COVID-19 CEPHEID 4-PLEX PCR Negative (Negative)
[2025-03-22 14:50] VITALS: BP 95/51; PULSE 72; RESP 24; O2SAT 99
[2025-03-22 15:11] VITALS: BP 108/58; PULSE 74; RESP 24; O2SAT 100
== END 2025-03-22 16:11 | disposition home or self-care (01) ==
PROVIDERS: Emergency Provider Physician Assistant; PCP Family Medicine
DX: J20.9 Acute bronchitis, unspecified (principal); R06.2 Wheezing; R07.9 Chest pain, unspecified; Z87.01 Personal history of pneumonia (recurrent)
CPT/HCPCS: 36415; 71046; 80053; 85025; 87637; 93005; 93010; 94150; 94640; 96374; 99284; J1885; J7030